=== PATIENT | male | born 1965 | race Caucasian/White ===

== ENCOUNTER 2019-11-19 17:31 | Inpatient (IN) | payer MEDICAID, OTHER ==
[~2019-11-19] VITALS: Ht 165.1 cm; Wt 41.3 kg
[2019-11-19] MEDS ORDERED: SODIUM CHLORIDE 0.9% 1000ML BAG (SEPSIS BOLUS) IV ONE (18:15)
[2019-11-19 19:06] LABS: CLARITY URINE CLEAR (CLEAR); COLOR URINE YELLOW (YELLOW); KETONES URINE NEGATIVE (NEGATIVE); LEUKOCYTE ESTERASE URINE 2+ (NEGATIVE); NITRITE URINE NEGATIVE (NEGATIVE); OCCULT BLOOD URINE 2+ (NEGATIVE); PH URINE 7.5 (4.5-8.0); PROTEIN URINE 1+ (NEGATIVE); SPECIFIC GRAVITY URINE 1.014 (1.005-1.030)
[2019-11-19 19:07] LABS: HEMOGLOBIN. 5.5 g/dL (14.0-18.0); MEAN CORPUSCULAR HEMOGLOBIN 29.9 pg (28.0-32.0); MEAN CORPUSCULAR VOLUME 90.6 fL (80.0-94.0); MEAN PLATELET VOLUME 9.4 fl (7.4-10.4); PLATELET 273 x1000/uL (130-400); RED BLOOD CELL COUNT 1.85 mill/uL (4.7-6.1); RED CELL DISTRIBUTION WIDTH 15.6 % (11.6-14.6)
[2019-11-19 19:08] LABS: HEMATOCRIT. 16.8 % (42.0-52.0)
[2019-11-19 19:12] LABS: CHLORIDE 96 mEq/L (98-107)
[2019-11-19 19:15] LABS: INR 1.2; PROTHROMBIN TIME 12.7 sec (9.6-11.0)
[2019-11-19] MEDS ORDERED: PIPERACILLIN/TAZOBACTAM 3.375GM/50ML PREMIX IV ONE (19:45)
[2019-11-19] MEDS ORDERED: PIPERACILLIN/TAZ 3.375G PREMIX 50 ML IV SCH (19:45)
[2019-11-19] MEDS ORDERED: POTASSIUM CHLORIDE 20MEQ TABLET SR PO SCH (19:45)
[2019-11-19] MEDS ORDERED: POTASSIUM CHLORIDE INJ 40 MEQ in DEXT 5% WATER 250 ML IV SCH (20:00)
[2019-11-19 20:13] LABS: BG BASE EXCESS 12.2 mmol/L (-2.0-2.0); BG DEOXYHEMOGLOBIN 3.6 % (0.0-5.0); BG FRACTION INSPIRED OXYGEN 50; BG HCO3 ACT 35.8 mmol/L (22.0-26.0); BG METHEMOGLOBIN 0.3 % (0.0-1.5); BG OXYGEN SATURATION 96.4 % (92.0-98.5); BG OXYHEMOGLOBIN 96.1 % (94.0-97.0); BG PCO2 42.5 mmHg (35.0-45.0); BG PH 7.543 (7.350-7.450); BG PO2 87.2 mmHg (75.0-100.0); BG SAMPLE SITE LEFT BRACHIAL; BG TIDAL VOLUME(mL) 500 mL; BG TOTAL HEMOGLOBIN 4.8 g/dL (12.0-18.0); BG VENT MODE VENT - A/C; BG VENT RATE 12 set
[2019-11-19 20:13] LABS: PLATELET ESTIMATE NORMAL
[2019-11-19] MEDS ORDERED: KCL 10MEQ/50ML PREMIX 50 ML IV SCH (23:15)
[2019-11-19] MEDS ORDERED: ACETAMINOPHEN 325MG TABLET PO PRN (23:15)
[2019-11-19] MEDS ORDERED: ONDANSETRON HCL 4MG/2ML INJ IV PRN (23:15)
[2019-11-19 23:47] LABS: TOTAL IRON BINDING CAPACITY 218 ug/dL (250-450)
[2019-11-20] VITALS (86 sets, daily range): BP systolic 97–173; BP diastolic 66–109
[2019-11-20] MEDS ORDERED: PIPERACILLIN/TAZOBACTAM 3.375 G in DEXTROSE 5% WATER 50 ML IV SCH ×2
[2019-11-20 00:08] LABS: VITAMIN B12 SERUM 1003 pg/mL (211-911)
[2019-11-20 00:09] LABS: FERRITIN 1117 ng/mL (22-322)
[2019-11-20 00:29] LABS: FOLIC ACID (FOLATE) SERUM > 20.00 ng/mL (>5.38)
[2019-11-20] MEDS ORDERED: IPRATROPIUM/ALBUTEROL 0.5-3(2.5)MG/3ML NEB HHN PRN (02:00)
[2019-11-20] MEDS ORDERED: POTASSIUM CHLORIDE 20MEQ TABLET SR PO NR (02:00)
[2019-11-20] MEDS ORDERED: SODIUM CHLORIDE 0.9% 1,000 ML IV SCH (02:30)
[2019-11-20] MEDS: PIPERACILLIN/TAZOBACTAM 3.375 G in DEXT 5% WATER 100 ML IV SCH ×4 (03:25→21:36)
[2019-11-20] MEDS ORDERED: VANCOMYCIN 750 MG PREMIX 150 ML IV NR (04:00)
[2019-11-20] MEDS: IPRATROPIUM/ALBUTEROL 0.5-3(2.5)MG/3ML NEB HHN SCH ×3 (09:00→20:36)
[2019-11-20 09:27] LABS: BG BASE EXCESS 6.4 mmol/L (-2.0-2.0); BG DEOXYHEMOGLOBIN 8.3 % (0.0-5.0); BG FRACTION INSPIRED OXYGEN 40; BG HCO3 ACT 29.6 mmol/L (22.0-26.0); BG METHEMOGLOBIN 0.3 % (0.0-1.5); BG OXYGEN SATURATION 91.7 % (92.0-98.5); BG OXYHEMOGLOBIN 91.4 % (94.0-97.0); BG PCO2 36.8 mmHg (35.0-45.0); BG PH 7.524 (7.350-7.450); BG PO2 57.8 mmHg (75.0-100.0); BG SAMPLE SITE RIGHT BRACHIAL; BG TIDAL VOLUME(mL) 500 mL; BG VENT MODE VENT - A/C; BG VENT RATE 12 set
[2019-11-20] MEDS: ACETAMINOPHEN 650MG/20.3ML UDC PEG PRN (09:38)
[2019-11-20 09:46] LABS: HEMATOCRIT. 22.3 % (42.0-52.0); HEMOGLOBIN. 7.5 g/dL (14.0-18.0); MEAN CORPUSCULAR HEMOGLOBIN 30.1 pg (28.0-32.0); MEAN CORPUSCULAR VOLUME 89.4 fL (80.0-94.0); MEAN PLATELET VOLUME 8.8 fl (7.4-10.4); PLATELET 206 x1000/uL (130-400); RED BLOOD CELL COUNT 2.49 mill/uL (4.7-6.1); RED CELL DISTRIBUTION WIDTH 14.8 % (11.6-14.6)
[2019-11-20] MEDS ORDERED: VANCOMYCIN 750 MG PREMIX 150 ML IV SCH (10:00)
[2019-11-20 10:04] LABS: CHLORIDE 110 mEq/L (98-107)
[2019-11-20] MEDS ORDERED: POTASSIUM CHLORIDE 20MEQ/PACKET PO NR ×4 (10:45→17:00)
[2019-11-20 11:33] LABS: PLATELET ESTIMATE NORMAL
[2019-11-20] MEDS ORDERED: MAGNESIUM 4 G PREMIX 100 ML IV SCH (12:00)
[2019-11-20] MEDS ORDERED: POTASSIUM CHLORIDE 20MEQ TABLET SR PO SCH (13:00)
[2019-11-20] MEDS: PANTOPRAZOLE SODIUM 40 MG/VIAL IV SCH ×2 (13:22→18:08)
[2019-11-20] MEDS: DEXT 5%/0.9% NACL 1,000 ML IV SCH (16:05)
[2019-11-20] MEDS ORDERED: POTASSIUM CHLORIDE INJ 40 MEQ in DEXT 5% WATER 250 ML IV NR (17:00)
[2019-11-20] MEDS: VANCOMYCIN HCL 750 MG in DEXT 5% WATER 250 ML IV SCH (18:44)
[2019-11-21] VITALS (101 sets, daily range): BP systolic 95–134; BP diastolic 65–94
[2019-11-21 00:11] LABS: CHLORIDE 111 mEq/L (98-107)
[2019-11-21] MEDS: VANCOMYCIN HCL 750 MG in DEXT 5% WATER 250 ML IV SCH (01:02)
[2019-11-21] MEDS: ACETAMINOPHEN 650MG/20.3ML UDC PEG PRN (01:10)
[2019-11-21] MEDS: IPRATROPIUM/ALBUTEROL 0.5-3(2.5)MG/3ML NEB HHN SCH ×4 (01:33→19:57)
[2019-11-21] MEDS: PIPERACILLIN/TAZOBACTAM 3.375 G in DEXT 5% WATER 100 ML IV SCH ×4 (03:20→21:10)
[2019-11-21 05:35] LABS: HEMATOCRIT. 22.1 % (42.0-52.0); HEMOGLOBIN. 7.5 g/dL (14.0-18.0); MEAN CORPUSCULAR HEMOGLOBIN 30.4 pg (28.0-32.0); MEAN CORPUSCULAR VOLUME 89.1 fL (80.0-94.0); MEAN PLATELET VOLUME 9.3 fl (7.4-10.4); PLATELET 214 x1000/uL (130-400); RED BLOOD CELL COUNT 2.48 mill/uL (4.7-6.1); RED CELL DISTRIBUTION WIDTH 14.9 % (11.6-14.6)
[2019-11-21 05:44] LABS: CHLORIDE 111 mEq/L (98-107)
[2019-11-21 07:25] LABS: PLATELET ESTIMATE NORMAL
[2019-11-21] MEDS: PANTOPRAZOLE SODIUM 40 MG/VIAL IV SCH ×2 (08:41→17:52)
[2019-11-21] MEDS: DEXT 5%/0.9% NACL 1,000 ML IV SCH ×2 (08:41→16:30)
[2019-11-21] MEDS: KCL 10MEQ/50ML PREMIX 50 ML IV SCH ×4 (12:15→17:52)
[2019-11-21] MEDS ORDERED: MORPHINE SULFATE 2 MG/ML CPJ (NOT FOR IM USE) IV PRN (14:00)
[2019-11-21] MEDS ORDERED: BACTERIOSTATIC SODIUM CHLORIDE 0.9% 30ML VIAL IJ ONE (14:05)
[2019-11-21] MEDS ORDERED: MIDAZOLAM HCL 5 MG/5 ML VIAL ONE (17:06)
[2019-11-21] MEDS ORDERED: FENTANYL CITRATE/PF 50MCG/ML 2ML VIAL ONE (17:06)
[2019-11-21] MEDS ORDERED: MIDAZOLAM HCL 5 MG/5 ML VIAL IV PRN (17:24)
[2019-11-21] MEDS ORDERED: FENTANYL CITRATE/PF 50MCG/ML 2ML VIAL IV PRN (17:25)
[2019-11-21] MEDS ORDERED: SORBITOL 70% SOLN 30ML PO SCH (17:45)
[2019-11-21] MEDS ORDERED: POTASSIUM CHLORIDE 20MEQ/PACKET PO SCH (18:00)
[2019-11-21] MEDS: VANCOMYCIN 500 MG PREMIX 100 ML IV SCH (21:54)
[2019-11-22] VITALS (95 sets, daily range): BP systolic 105–142; BP diastolic 69–103
[2019-11-22] MEDS: IPRATROPIUM/ALBUTEROL 0.5-3(2.5)MG/3ML NEB HHN SCH ×4 (01:51→20:35)
[2019-11-22] MEDS: PIPERACILLIN/TAZOBACTAM 3.375 G in DEXT 5% WATER 100 ML IV SCH ×4 (04:29→20:50)
[2019-11-22 05:14] LABS: BASOPHILS % 0.5 % (0.0-2.0); EOSINOPHILS % 0.9 % (0.0-5.0); HEMATOCRIT. 24.8 % (42.0-52.0); HEMOGLOBIN. 8.3 g/dL (14.0-18.0); LYMPHOCYTES % 7.7 % (20.0-50.0); MEAN CORPUSCULAR HEMOGLOBIN 30.3 pg (28.0-32.0); MEAN CORPUSCULAR VOLUME 90.6 fL (80.0-94.0); MONOCYTES % 6.2 % (2.0-8.0); NEUTROPHILS % 84.7 % (40.0-76.0); PLATELET 218 x1000/uL (130-400); RED BLOOD CELL COUNT 2.74 mill/uL (4.7-6.1); RED CELL DISTRIBUTION WIDTH 15.4 % (11.6-14.6)
[2019-11-22 05:22] LABS: CHLORIDE 117 mEq/L (98-107)
[2019-11-22] MEDS: DEXT 5%/0.9% NACL 1,000 ML IV SCH (05:29)
[2019-11-22] MEDS ORDERED: SORBITOL 70% SOLN 30ML PO SCH (06:00)
[2019-11-22] MEDS: VANCOMYCIN 500 MG PREMIX 100 ML IV SCH (08:29)
[2019-11-22] MEDS: PANTOPRAZOLE SODIUM 40 MG/VIAL IV SCH ×2 (08:29→18:16)
[2019-11-22] MEDS: ACETAMINOPHEN 650MG/20.3ML UDC PEG PRN ×2 (10:57→21:46)
[2019-11-22] MEDS: DEXTROSE 5% WATER 1,000 ML IV SCH (12:19)
[2019-11-22] MEDS ORDERED: BACTERIOSTATIC SODIUM CHLORIDE 0.9% 30ML VIAL IJ ONE (14:13)
[2019-11-22] MEDS: LINEZOLID 600 MG PREMIX 300 ML IV SCH (18:16)
[2019-11-22] MEDS ORDERED: FENTANYL CITRATE/PF 50MCG/ML 2ML VIAL ONE (18:49)
[2019-11-22] MEDS ORDERED: MIDAZOLAM HCL 5 MG/5 ML VIAL ONE (18:49)
[2019-11-22] MEDS ORDERED: FENTANYL CITRATE/PF 50MCG/ML 2ML VIAL IV PRN (19:05)
[2019-11-22] MEDS ORDERED: MIDAZOLAM HCL 5 MG/5 ML VIAL IV PRN (19:06)
[2019-11-22] MEDS: MORPHINE SULFATE 2 MG/ML CPJ (NOT FOR IM USE) IV PRN (20:51)
[2019-11-23] VITALS (96 sets, daily range): BP systolic 96–173; BP diastolic 59–116
[2019-11-23] MEDS: METOCLOPRAMIDE HCL 10MG/2ML VIAL IV SCH ×4 (00:35→17:54)
[2019-11-23] MEDS: IPRATROPIUM/ALBUTEROL 0.5-3(2.5)MG/3ML NEB HHN SCH ×4 (01:51→20:15)
[2019-11-23] MEDS: PIPERACILLIN/TAZOBACTAM 3.375 G in DEXT 5% WATER 100 ML IV SCH ×4 (02:51→20:15)
[2019-11-23] MEDS: MORPHINE SULFATE 2 MG/ML CPJ (NOT FOR IM USE) IV PRN ×3 (03:02→20:53)
[2019-11-23 05:21] LABS: BASOPHILS % 0.6 % (0.0-2.0); EOSINOPHILS % 2.6 % (0.0-5.0); HEMATOCRIT. 22.9 % (42.0-52.0); HEMOGLOBIN. 7.7 g/dL (14.0-18.0); LYMPHOCYTES % 9.2 % (20.0-50.0); MEAN CORPUSCULAR VOLUME 89.8 fL (80.0-94.0); MONOCYTES % 5.5 % (2.0-8.0); NEUTROPHILS % 82.1 % (40.0-76.0); PLATELET 210 x1000/uL (130-400); RED BLOOD CELL COUNT 2.55 mill/uL (4.7-6.1); RED CELL DISTRIBUTION WIDTH 14.8 % (11.6-14.6)
[2019-11-23] MEDS: LINEZOLID 600 MG PREMIX 300 ML IV SCH ×2 (05:28→18:05)
[2019-11-23] MEDS: DEXTROSE 5% WATER 1,000 ML IV SCH (05:29)
[2019-11-23 08:03] LABS: CHLORIDE 108 mEq/L (98-107)
[2019-11-23] MEDS: PANTOPRAZOLE SODIUM 40 MG/VIAL IV SCH ×2 (08:20→17:06)
[2019-11-23] MEDS: ACETAMINOPHEN 650MG/20.3ML UDC PEG PRN (08:21)
[2019-11-23] MEDS ORDERED: POTASSIUM CHLORIDE 20MEQ/PACKET PEG NR ×2 (09:15→16:00)
[2019-11-23] MEDS ORDERED: MAGNESIUM 2 G PREMIX 50 ML IV SCH (11:00)
[2019-11-24] VITALS (96 sets, daily range): BP systolic 68–167; BP diastolic 42–115
[2019-11-24] MEDS: DILTIAZEM HCL 60MG TABLET PO SCH ×4 (00:09→17:36)
[2019-11-24] MEDS: DEXTROSE 5% WATER 1,000 ML IV SCH ×2 (00:10→04:20)
[2019-11-24] MEDS ORDERED: LORAZEPAM 2MG/ML CPJ IV SCH (00:15)
[2019-11-24] MEDS ORDERED: SODIUM CHLORIDE 0.9% 1,000 ML IV ONE (02:15)
[2019-11-24] MEDS ORDERED: DIGOXIN 500MCG/2ML AMP IV SCH (02:15)
[2019-11-24] MEDS: PIPERACILLIN/TAZOBACTAM 3.375 G in DEXT 5% WATER 100 ML IV SCH ×4 (02:19→20:55)
[2019-11-24 02:23] LABS: CHLORIDE 103 mEq/L (98-107)
[2019-11-24 02:29] LABS: HEMATOCRIT. 22.8 % (42.0-52.0); HEMOGLOBIN. 7.5 g/dL (14.0-18.0); MEAN CORPUSCULAR HEMOGLOBIN 29.6 pg (28.0-32.0); MEAN CORPUSCULAR VOLUME 89.5 fL (80.0-94.0); MEAN PLATELET VOLUME 8.4 fl (7.4-10.4); PLATELET 232 x1000/uL (130-400); RED BLOOD CELL COUNT 2.55 mill/uL (4.7-6.1); RED CELL DISTRIBUTION WIDTH 14.9 % (11.6-14.6)
[2019-11-24] MEDS ORDERED: SODIUM CHLORIDE 0.9% 500 ML IV ONE ×2 (02:30→11:30)
[2019-11-24] MEDS ORDERED: NOREPINEPHRINE 8 MG in DEXT 5% WATER 242 ML IV PRN (02:30)
[2019-11-24 03:48] LABS: PLATELET ESTIMATE NORMAL
[2019-11-24 05:20] LABS: HEMATOCRIT. 25.4 % (42.0-52.0); HEMOGLOBIN. 8.4 g/dL (14.0-18.0); MEAN CORPUSCULAR HEMOGLOBIN 29.6 pg (28.0-32.0); MEAN CORPUSCULAR VOLUME 89.2 fL (80.0-94.0); MEAN PLATELET VOLUME 8.7 fl (7.4-10.4); PLATELET 226 x1000/uL (130-400); RED BLOOD CELL COUNT 2.85 mill/uL (4.7-6.1)
[2019-11-24 05:23] LABS: CHLORIDE 102 mEq/L (98-107)
[2019-11-24] MEDS: LINEZOLID 600 MG PREMIX 300 ML IV SCH ×2 (05:25→17:37)
[2019-11-24] MEDS: METOCLOPRAMIDE HCL 10MG/2ML VIAL IV SCH ×2 (05:25)
[2019-11-24] MEDS: MORPHINE SULFATE 2 MG/ML CPJ (NOT FOR IM USE) IV PRN (06:39)
[2019-11-24] MEDS: IPRATROPIUM/ALBUTEROL 0.5-3(2.5)MG/3ML NEB HHN SCH ×2 (09:15→20:56)
[2019-11-24] MEDS: PANTOPRAZOLE SODIUM 40 MG/VIAL IV SCH ×2 (09:22→17:34)
[2019-11-24] MEDS ORDERED: MAGNESIUM 2 G PREMIX 50 ML IV SCH (11:00)
[2019-11-24] MEDS ORDERED: PHENYLEPHRINE 20 MG in DEXT 5% WATER 248 ML IV PRN (11:30)
[2019-11-24 12:16] LABS: PLATELET ESTIMATE NORMAL
[2019-11-25] VITALS (69 sets, daily range): BP systolic 86–122; BP diastolic 47–82
[2019-11-25] MEDS: IPRATROPIUM/ALBUTEROL 0.5-3(2.5)MG/3ML NEB HHN SCH ×5 (01:24→20:40)
[2019-11-25] MEDS: PIPERACILLIN/TAZOBACTAM 3.375 G in DEXT 5% WATER 100 ML IV SCH ×4 (03:54→21:20)
[2019-11-25 05:45] LABS: BASOPHILS % 0.5 % (0.0-2.0); EOSINOPHILS % 2.3 % (0.0-5.0); LYMPHOCYTES % 7.6 % (20.0-50.0); MEAN CORPUSCULAR HEMOGLOBIN 29.8 pg (28.0-32.0); MEAN CORPUSCULAR VOLUME 88.8 fL (80.0-94.0); MEAN PLATELET VOLUME 8.4 fl (7.4-10.4); MONOCYTES % 4.1 % (2.0-8.0); NEUTROPHILS % 85.5 % (40.0-76.0); PLATELET 186 x1000/uL (130-400); RED BLOOD CELL COUNT 2.26 mill/uL (4.7-6.1); RED CELL DISTRIBUTION WIDTH 14.8 % (11.6-14.6)
[2019-11-25 05:55] LABS: CHLORIDE 104 mEq/L (98-107)
[2019-11-25] MEDS: DILTIAZEM HCL 60MG TABLET PO SCH ×2 (06:00)
[2019-11-25 06:03] LABS: CREATINE KINASE 11 IU/L (39-308); CREATINE KINASE MB FRACTION < 1.0 ng/mL (0.5-3.6)
[2019-11-25 06:13] LABS: HEMATOCRIT. 20.1 % (42.0-52.0); HEMOGLOBIN. 6.7 g/dL (14.0-18.0)
[2019-11-25] MEDS: LINEZOLID 600 MG PREMIX 300 ML IV SCH ×2 (06:43→17:41)
[2019-11-25] MEDS: MORPHINE SULFATE 2 MG/ML CPJ (NOT FOR IM USE) IV PRN ×2 (08:07→12:15)
[2019-11-25] MEDS: PANTOPRAZOLE SODIUM 40 MG/VIAL IV SCH ×2 (09:44→17:41)
[2019-11-25] MEDS ORDERED: TRAMADOL 50MG TABLET PO PRN (13:00)
[2019-11-25] MEDS: ACETYLCYSTEINE 100MG/ML 10% VIAL 4ML INH SCH (14:13)
[2019-11-25 15:18] LABS: HEMATOCRIT 26.4 % (42.0-52.0)
[2019-11-25] MEDS: DILTIAZEM HCL 30MG TABLET GT SCH (17:41)
[2019-11-25] MEDS: SUCRALFATE 1 G/10 ML UDC PO SCH (21:20)
[2019-11-25] MEDS: ACETAMINOPHEN 650MG/20.3ML UDC PEG PRN (21:39)
[2019-11-26] VITALS (12 sets, daily range): BP systolic 107–144; BP diastolic 74–100
[2019-11-26] MEDS: DILTIAZEM HCL 30MG TABLET GT SCH ×4 (00:59→18:14)
[2019-11-26] MEDS: IPRATROPIUM/ALBUTEROL 0.5-3(2.5)MG/3ML NEB HHN SCH ×4 (02:05→20:10)
[2019-11-26] MEDS: ACETYLCYSTEINE 100MG/ML 10% VIAL 4ML INH SCH ×2 (03:47→08:19)
[2019-11-26] MEDS: LINEZOLID 600 MG PREMIX 300 ML IV SCH ×2 (06:21→18:14)
[2019-11-26 07:12] LABS: CHLORIDE 101 mEq/L (98-107)
[2019-11-26 07:36] LABS: BASOPHILS % 0.6 % (0.0-2.0); EOSINOPHILS % 3.2 % (0.0-5.0); HEMATOCRIT. 26.4 % (42.0-52.0); LYMPHOCYTES % 9.4 % (20.0-50.0); MEAN CORPUSCULAR HEMOGLOBIN 29.8 pg (28.0-32.0); MEAN CORPUSCULAR VOLUME 87.3 fL (80.0-94.0); MEAN PLATELET VOLUME 8.3 fl (7.4-10.4); MONOCYTES % 5.3 % (2.0-8.0); NEUTROPHILS % 81.5 % (40.0-76.0); PLATELET 243 x1000/uL (130-400); RED BLOOD CELL COUNT 3.02 mill/uL (4.7-6.1); RED CELL DISTRIBUTION WIDTH 15.4 % (11.6-14.6)
[2019-11-26] MEDS: PANTOPRAZOLE SODIUM 40 MG/VIAL IV SCH ×2 (09:27→18:14)
[2019-11-26] MEDS: SUCRALFATE 1 G/10 ML UDC PO SCH ×4 (09:27→20:58)
[2019-11-26] MEDS ORDERED: HYDROCODONE/ACETAMINOPHEN 5/325MG TABLET PO PRN (13:00)
[2019-11-26] MEDS: LIDOCAINE 5% PATCH TOP SCH (18:13)
[2019-11-27] VITALS (12 sets, daily range): BP systolic 104–158; BP diastolic 68–105
[2019-11-27] MEDS: ACETAMINOPHEN 650MG/20.3ML UDC PEG PRN (00:42)
[2019-11-27] MEDS: DILTIAZEM HCL 30MG TABLET GT SCH ×2 (00:42→06:35)
[2019-11-27] MEDS: IPRATROPIUM/ALBUTEROL 0.5-3(2.5)MG/3ML NEB HHN SCH ×4 (02:00→20:35)
[2019-11-27] MEDS: ACETYLCYSTEINE 100MG/ML 10% VIAL 4ML INH SCH ×3 (02:00→20:35)
[2019-11-27] MEDS: LINEZOLID 600 MG PREMIX 300 ML IV SCH ×2 (06:35→18:26)
[2019-11-27 08:00] LABS: HEMATOCRIT. 24.5 % (42.0-52.0); HEMOGLOBIN. 8.3 g/dL (14.0-18.0); MEAN CORPUSCULAR VOLUME 88.5 fL (80.0-94.0); MEAN PLATELET VOLUME 8.1 fl (7.4-10.4); PLATELET 250 x1000/uL (130-400); RED BLOOD CELL COUNT 2.77 mill/uL (4.7-6.1); RED CELL DISTRIBUTION WIDTH 14.9 % (11.6-14.6)
[2019-11-27 08:12] LABS: CHLORIDE 93 mEq/L (98-107)
[2019-11-27] MEDS ORDERED: POTASSIUM CHLORIDE 20MEQ/PACKET GT NR (09:45)
[2019-11-27] MEDS: PANTOPRAZOLE SODIUM 40 MG/VIAL IV SCH ×2 (10:32→18:25)
[2019-11-27] MEDS: SUCRALFATE 1 G/10 ML UDC PO SCH ×4 (10:32→20:35)
[2019-11-27] MEDS: LIDOCAINE 5% PATCH TOP SCH (10:34)
[2019-11-27 10:52] LABS: PLATELET ESTIMATE NORMAL
[2019-11-27 13:05] LABS: CHLORIDE 102 mEq/L (98-107)
[2019-11-27] MEDS: DILTIAZEM HCL 60MG TABLET GT SCH ×2 (14:24→20:35)
[2019-11-28] VITALS (11 sets, daily range): BP systolic 106–121; BP diastolic 67–82
[2019-11-28] MEDS: IPRATROPIUM/ALBUTEROL 0.5-3(2.5)MG/3ML NEB HHN SCH ×4 (01:58→20:45)
[2019-11-28] MEDS: DILTIAZEM HCL 60MG TABLET GT SCH ×2 (05:23→17:14)
[2019-11-28 06:28] LABS: HEMATOCRIT. 27.2 % (42.0-52.0); HEMOGLOBIN. 9.1 g/dL (14.0-18.0); MEAN CORPUSCULAR HEMOGLOBIN 29.6 pg (28.0-32.0); MEAN CORPUSCULAR VOLUME 88.4 fL (80.0-94.0); MEAN PLATELET VOLUME 7.8 fl (7.4-10.4); PLATELET 297 x1000/uL (130-400); RED BLOOD CELL COUNT 3.08 mill/uL (4.7-6.1); RED CELL DISTRIBUTION WIDTH 14.8 % (11.6-14.6)
[2019-11-28 06:34] LABS: CHLORIDE 101 mEq/L (98-107)
[2019-11-28] MEDS: ACETYLCYSTEINE 100MG/ML 10% VIAL 4ML INH SCH ×2 (08:30→20:45)
[2019-11-28] MEDS: PANTOPRAZOLE SODIUM 40 MG/VIAL IV SCH ×2 (08:30→17:13)
[2019-11-28] MEDS: SUCRALFATE 1 G/10 ML UDC PO SCH ×3 (08:30→16:01)
[2019-11-28] MEDS: ACETAMINOPHEN 650MG/20.3ML UDC PEG PRN ×2 (08:30→16:01)
[2019-11-28 08:37] LABS: PLATELET ESTIMATE NORMAL
[2019-11-28] MEDS: LIDOCAINE 5% PATCH TOP SCH (08:51)
[2019-11-28 12:49] LABS: CLARITY URINE CLEAR (CLEAR); COLOR URINE YELLOW (YELLOW); KETONES URINE NEGATIVE (NEGATIVE); LEUKOCYTE ESTERASE URINE NEGATIVE (NEGATIVE); NITRITE URINE NEGATIVE (NEGATIVE); OCCULT BLOOD URINE NEGATIVE (NEGATIVE); PROTEIN URINE NEGATIVE (NEGATIVE); SPECIFIC GRAVITY URINE 1.008 (1.005-1.030); UROBILINOGEN URINE 0.2 E.U./dL (0.2-1.0)
[2019-11-28] MEDS: CEFEPIME 1,000 MG in DEXTROSE 5% WATER 50 ML IV SCH (17:12)
[2019-11-28] MEDS: VANCOMYCIN 500 MG PREMIX 100 ML IV SCH (17:12)
[2019-11-29] VITALS (11 sets, daily range): BP systolic 104–121; BP diastolic 65–81
[2019-11-29] MEDS: SUCRALFATE 1 G/10 ML UDC PO SCH ×4 (00:30→16:48)
[2019-11-29] MEDS: DILTIAZEM HCL 60MG TABLET GT SCH ×4 (00:31→18:34)
[2019-11-29] MEDS: IPRATROPIUM/ALBUTEROL 0.5-3(2.5)MG/3ML NEB HHN SCH ×3 (02:02→14:13)
[2019-11-29] MEDS: VANCOMYCIN 500 MG PREMIX 100 ML IV SCH (03:50)
[2019-11-29] MEDS: CEFEPIME 1,000 MG in DEXTROSE 5% WATER 50 ML IV SCH ×2 (03:50→16:48)
[2019-11-29] MEDS: ACETYLCYSTEINE 100MG/ML 10% VIAL 4ML INH SCH (08:09)
[2019-11-29] MEDS: PANTOPRAZOLE SODIUM 40 MG/VIAL IV SCH ×2 (08:20→16:48)
[2019-11-29] MEDS: LIDOCAINE 5% PATCH TOP SCH (08:22)
[2019-11-29 11:45] LABS: HEMATOCRIT. 25.2 % (42.0-52.0); HEMOGLOBIN. 8.5 g/dL (14.0-18.0); MEAN CORPUSCULAR HEMOGLOBIN 29.8 pg (28.0-32.0); MEAN CORPUSCULAR VOLUME 87.9 fL (80.0-94.0); MEAN PLATELET VOLUME 6.8 fl (7.4-10.4); PLATELET 305 x1000/uL (130-400); RED BLOOD CELL COUNT 2.87 mill/uL (4.7-6.1); RED CELL DISTRIBUTION WIDTH 14.4 % (11.6-14.6)
[2019-11-29 12:54] LABS: PLATELET ESTIMATE NORMAL
[2019-11-29] MEDS ORDERED: VANCOMYCIN 500 MG PREMIX 100 ML IV SCH (18:00)
== END 2019-11-29 20:22 | DRG 720 ==
LOC: ER 17:31 → MICUNO 22:32 → EDBEDREQ 22:34 → EDBEDREQTM 22:38 → ENRESERV 23:29 → 5EST 11-25 17:17
PROVIDERS: ADMIT Internal Medicine; ATTEND Internal Medicine
PROC: 5A1955Z Respiratory Ventilation, Greater than 96 Consecutive Hours (ICD-10-PCS; principal; 2019-11-19)
PROC: 30233N1 Transfusion of Nonautologous Red Blood Cells into Peripheral Vein, Percutaneous Approach (ICD-10-PCS; 2019-11-21)
PROC: 30233N1 Transfusion of Nonautologous Red Blood Cells into Peripheral Vein, Percutaneous Approach (ICD-10-PCS; 2019-11-21)
PROC: 0DJD8ZZ Inspection of Lower Intestinal Tract, Via Natural or Artificial Opening Endoscopic (ICD-10-PCS; 2019-11-21)
PROC: 0DB78ZX Excision of Stomach, Pylorus, Via Natural or Artificial Opening Endoscopic, Diagnostic (ICD-10-PCS; 2019-11-21)
PROC: 02H633Z Insertion of Infusion Device into Right Atrium, Percutaneous Approach (ICD-10-PCS; 2019-11-21)
PROC: B548ZZA Ultrasonography of Superior Vena Cava, Guidance (ICD-10-PCS; 2019-11-21)
DX: A41.1 Sepsis due to other specified staphylococcus (principal); J96.21 Acute and chronic respiratory failure with hypoxia; E43 Unspecified severe protein-calorie malnutrition; Z99.11 Dependence on respirator [ventilator] status; J18.9 Pneumonia, unspecified organism; R57.8 Other shock; R65.21 Severe sepsis with septic shock; Z93.0 Tracheostomy status; E87.0 Hyperosmolality and hypernatremia; I31.3 Pericardial effusion (noninflammatory); E83.42 Hypomagnesemia; D62 Acute posthemorrhagic anemia; E87.6 Hypokalemia; K92.2 Gastrointestinal hemorrhage, unspecified; K74.60 Unspecified cirrhosis of liver; F10.10 Alcohol abuse, uncomplicated; K64.8 Other hemorrhoids; N39.0 Urinary tract infection, site not specified
CPT/HCPCS: 36415; 36600; 71045; 73020; 73200; 74176; 76705; 76937; 80048; 80053; 80202; 81003; 82270; 82375; 82550; 82553; 82607; 82728; 82746; 82805; 82962; 83540; 83550; 83605; 83735; 83880; 84145; 84484; 85014; 85018; 85025; 85044; 86850; 86900; 86920; 87070; 87077; 87186; 88305; 88312; 88313; 93005; 93306; 94002; 94003; 94640; 96365; 99291; C1725; C9113; J0692; J1160; J2020; J2060; J2250; J2270; J2543; J2765; J3010; J3370; J3475; J3480; J3490; J7030; J7042; J7060; J7070; J7608; P9016